=== PATIENT | male | born 1965 | race Caucasian/White ===

== ENCOUNTER → 2020-07-15 | Day surgery (SDC) | payer OTHER ==
--- NOTE | 2020-07-12 08:47 | Diagnostic Imaging Report ---
Exam: KUB - 2 views Indication: Preoperative Comparison: None Findings: Left lower pole 6 mm renal calculus. Scattered smaller punctate calcifications overlying the upper pole of left kidney measure up to 2 mm. Right lower pole 5 mm renal calculus. Nonobstructive bowel gas pattern. No free air. No acute osseous injury. Small phleboliths in the pelvis. Impression: Bilateral renal calculi measure up to 5 mm on the right and 6 mm on the left. Signed by: Jay Rader MD on 07/12/2020 8:43 AM
[~2020-07-15] MED LIST: ACETAMINOPHEN-1 EAC4 PO; ACETAMINOPHEN/CODEINE 300MG - 30MG TAB ONE; APPLE CIDER VI300 MG PO; B&O 60MG R/S 60 MG SUPP PR ONE; CEFTRIAXONE SOD 1 GM/NS 50 ML 50 ML IV ONE; DEXAMETHASONE SOD PHOS INJ 4 MG/ML VIAL ONE; EPHEDRINE SULFATE INJ 50 MG/ML VIAL ONE; FENTANYL CITRATE/PF 100MCG/2 ML INJ ONE; IOPAMIDOL 300MG/ML 50ML INFUS..BTL IV ONE; LIDOCAINE HCL 2% LOCAL INJ 5 ML SDV VIAL INJ ONE; MIDAZOLAM HCL 2 MG/2 ML VIAL ONE; ONDANSETRON HCL INJ 2MG/ML 2ML 2 MG/ML VIAL ONE; PROPOFOL IV EMULSION 10 MG/ML 20 ML VIAL ONE; SEVOFLURANE INHAL SOLN 250 ML PEN BTL ONE; ZOFRAN4 MG PO
[2020-07-15 09:30] VITALS: BP 162/99
--- NOTE | 2020-07-15 10:20 | Operative Report ---
DATE OF PROCEDURE: 07/15/2020 SURGEON: Oumar Sanchez MD PREOPERATIVE DIAGNOSES: 1. Right urolithiasis. 2. Hematuria. POSTOPERATIVE DIAGNOSES: 1. Right urolithiasis. 2. Hematuria. OPERATION PERFORMED: 1. Cystourethroscopy with bilateral ureteral catheterization and retrograde ureteropyelography (separate procedure performed for the hematuria). 2. Right ureteroscopy with holmium laser lithotripsy, extraction of stone fragments and insertion of stent (separate procedure performed for the urolithiasis). 3. Radiological services with supervision and interpretation of ureteroscopy, no radiologist present. 4. Interpretation of retrograde ureteropyelography, no radiologist present. 5. Supervision of fluoroscopy, no radiologist present. ANESTHESIA: General. COMPLICATIONS: None. CLINICAL SUMMARY: Abilio Rosas is a 54-year-old man with bilateral stones. He is brought for management of his right-sided stones where has been symptomatic. He is aware of the risks of bleeding, infection, injury to adjacent structures, need for additional procedures and elected to proceed. OPERATIVE PROCEDURE IN DETAIL: Informed consent was verified, Abilio Rosas was properly identified, taken to the operating room, placed on the cystoscopy table in supine position. Anesthesia was uneventfully begun. The patient was then carefully gently repositioned in the dorsal lithotomy position. All pressure points were padded. His genitalia were prepared and draped in the usual sterile fashion. The cystoscope sheath with a visual obturator in placed, was atraumatically inserted into the patient's urethra. It was guided down the unremarkable distal urethra through normal sphincteric region through the prostate bed, which was significant for early BPH. We entered the patient's bladder, panendoscopy revealed trabeculations, but no tumors, no stones, no diverticula. Normally positioned and configured ureteral orifices were identified. An open-ended catheter was used to cannulate the left ureter and retrograde ureteral pyelogram was performed, it was then inserted into the right ureter and retrograde ureteropyelography were performed. A guidewire was then placed into the right ureter and guided to the level of the patient's kidney. A semi-rigid ureteroscope was then inserted alongside the guidewire up into the distal right ureter, where we did not see any stones there. We then placed a secondary guidewire and over this guidewire, we utilized a flexible ureteroscopy sheath and the flexible ureteroscope was atraumatically placed. In the kidney, we found two stones, one in the mid pole and one in the lower pole. We performed holmium laser lithotripsy to break up these stones and the largest stone fragments were extracted with Nitinol tipless basket. Only fine sand remained. 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 We carefully re-examined the ureter as exited and then it exhibited no remaining stones. With cystoscopic fluoroscopic guidance, a right-sided indwelling ureteral stent was then placed, it was coiled in the patient's kidneys as well as the patient's bladder, retaining suture was cut short. INTERPRETATION OF RETROGRADE URETEROPYELOGRAPHY: No radiologist present. Contrast was instilled in retrograde fashion bilaterally. The left side exhibited no hydronephrosis and no suspicious lesions, stone was encountered and the kidney was not nonobstructing. The right side exhibited some hydroureteronephrosis down to the level near the bladder where there was no stone presently, but the patient could pass the stone caused that appearance. The stent was in good position, coiled the patient's right kidney as well as the patient's bladder at the end of the case. The patient's bladder was drained, the cystoscope was withdrawn. The belladonna and opium suppository were placed revealing a 35 g prostate that is smooth, nonfluctuant without any nodule. The patient was then uneventfully reversed from anesthesia and taken to the recovery room in stable condition. There were no complications to the procedure. He tolerated the procedure well. Estimated blood loss was minimal. Explicit postoperative instructions were given. Plans will be to return the patient to the operating room for a left-sided ESWL in conjunction with right ureteroscopy. Oumar MD Daniel [place]/MODL /[id number] cc: Los Nicole MD
== END | disposition home or self-care (01) ==
LOC: OR 05:27
PROVIDERS: ATTEND Urology
DX: N20.0 Calculus of kidney (principal); N20.1 Calculus of ureter; N40.0 Benign prostatic hyperplasia without lower urinary tract symptoms; N32.89 Other specified disorders of bladder; N28.89 Other specified disorders of kidney and ureter; N13.30 Unspecified hydronephrosis; Z01.810 Encounter for preprocedural cardiovascular examination; Z01.812 Encounter for preprocedural laboratory examination; Z01.818 Encounter for other preprocedural examination; Z11.59 Encounter for screening for other viral diseases; Z68.33 Body mass index [BMI] 33.0-33.9, adult
CPT/HCPCS: 52356; 74018; 74420; 88300; 93005; C1758; C1766; C1769; C2617; J0696; J1100; J2001; J2250; J2405; J2704; J3010; Q9967; U0002

== ENCOUNTER → 2020-08-16 | Day surgery (SDC) | payer OTHER ==
[2020-08-13 11:13] LABS: ANION GAP 13.5 mmol/L (8-16); CALCIUM 9.5 mg/dL (8.4-10.2); CREATININE, SERUM 1.41 mg/dL (0.72-1.25); POTASSIUM 4.5 mmol/L (3.5-5.1)
[~2020-08-16] VITALS: Ht 185.4 cm; Wt 108.9 kg
[~2020-08-16] MED LIST changes: +APPLE CIDER VINEGAR; -B&O 60MG R/S 60 MG SUPP PR ONE; -EPHEDRINE SULFATE INJ 50 MG/ML VIAL ONE; +HYDROCHLOROTH12.5 MG PO; -IOPAMIDOL 300MG/ML 50ML INFUS..BTL IV ONE; +OXYBUTYNIN CHLOR5 MG PO
[2020-08-16 11:30] VITALS: BP 146/102
== END | disposition home or self-care (01) ==
LOC: OR 07:00
PROVIDERS: ATTEND Urology
DX: N20.0 Calculus of kidney (principal); Z46.6 Encounter for fitting and adjustment of urinary device; N40.1 Benign prostatic hyperplasia with lower urinary tract symptoms; N13.8 Other obstructive and reflux uropathy; N32.89 Other specified disorders of bladder; N28.89 Other specified disorders of kidney and ureter; I10 Essential (primary) hypertension; Z01.810 Encounter for preprocedural cardiovascular examination; Z01.812 Encounter for preprocedural laboratory examination; Z01.818 Encounter for other preprocedural examination; Z11.59 Encounter for screening for other viral diseases
CPT/HCPCS: 36415; 50590; 52352; 74018; 80048; 93005; C1758; C1769; J0696; J1100; J2001; J2250; J2405; J2704; J3010; U0002